=== PATIENT | male | born 1965 | race Caucasian/White ===

== ENCOUNTER 2017-01-25 18:50 | Inpatient (IN) | payer SELFPAY ==
[2017-01-25] MEDS ORDERED: Vancomycin HCl 1.25 GM in Sodium Chloride 0.9% 250 ML 250 ML IVPB SCH (20:00)
[2017-01-25] MEDS ORDERED: Ondansetron HCl/PF 4 MG/2 ML Vial IVP PRN (20:11)
[2017-01-25] MEDS ORDERED: Bisacodyl 5 MG TAB PO PRN (20:11)
[2017-01-25 20:13] LABS: Lactic Acid - Sepsis 2.5 mmol/L (0.5-2.2)
[2017-01-25] MEDS ORDERED: Morphine 2 MG/ML SYRINGE SLOW IVP PRN (20:15)
[2017-01-25 20:17] LABS: ALT (SGPT) 19 U/L (8-55); AST (SGOT) 22 U/L (5-34); Alkaline Phosphatase 85 U/L (40-150); Anion Gap 14 mmol/L (10-20); BUN (Urea Nitrogen) 13 mg/dL (8.4-25.7); Bilirubin, Total 0.4 mg/dL (0.2-1.2); Calc. Creatinine Clearance 0 mL/min (70-130); Calcium 9.2 mg/dL (7.8-10.44); Carbon Dioxide 24 mmol/L (22-29); Chloride 104 mmol/L (98-107); Estimated GFR-MDRD 83; Globulin 3.3 g/dL (2.4-3.5); Protein, Total 7.2 g/dL (6.0-8.3)
[2017-01-25 20:19] LABS: Lactate 1.85 mmol/L (0.50-2.20)
--- NOTE | 2017-01-25 20:19 | RAD ---
THREE VIEWS RIGHT HAND: History: Patient with right thumb swelling. Previous injury. FINDINGS: AP, lateral, and oblique views right thumb obtained. Old healed fracture is seen in the distal aspect of the fourth and fifth metacarpals. The fracture i n the distal phalanx second digit is also healed. There is soft tissue swelling along the soft tissues of the proximal phalanx first digit right hand. No osseous abnormality is seen. IMPRESSION: Soft tissue swelling along the proximal portion of the right thumb with no evidence of acute bony le sions seen. POS: PENNY
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
[2017-01-25 23:05] VITALS: BMI 24.5
[2017-01-25] MEDS: HYDROcodone/Acetaminophen 10/325 mg Tablet PO PRN (23:39)
[2017-01-25] MEDS: Sodium Chloride 0.9% 1,000 ML IV SCH (23:40)
[2017-01-26 08:58] LABS: #Eosinphils 0.3 thou/uL (0.0-0.7); #Lymphocytes 1.8 thou/uL (1.20-3.40); #Monocytes 0.6 thou/uL (0.11-0.59); #Neutrophils 3.9 thou/uL (1.40-6.50); %Basophils 0.5 % (0.0-1.0); %Eosinophils 4.3 % (0.0-10.0); %Lymphocytes 27.8 % (21.0-51.0); %Monocytes 8.8 % (0.0-10.0); Hematocrit 41.4 % (42.0-52.0); Mean Platelet Volume 7.9 fL (7.4-10.4); Red Blood Cell (RBC) Count 4.47 mill/uL (4.70-6.10); White Blood Cell (WBC) Count 6.6 thou/uL (4.8-10.8)
[2017-01-26] MEDS ORDERED: FLU VACC QS2017-18 36 mo. & older 0.5 ML SYRINGE IM ONE (09:00)
[2017-01-26] MEDS ORDERED: Ondansetron HCl/PF 4 MG/2 ML Vial ONE (13:01)
[2017-01-26] MEDS ORDERED: CEFAZOLIN 1 GM VIAL ONE (13:01)
[2017-01-26] MEDS ORDERED: Propofol 200 MG/20 ML VIAL ONE (13:01)
[2017-01-26] MEDS ORDERED: Lidocaine 1% PF 5 ML VIAL ONE (13:01)
[2017-01-26] MEDS ORDERED: Neomycin-Polymyxin 1 ML AMP ONE (14:44)
[2017-01-26] MEDS ORDERED: Fentanyl 100 MCG/2 ML VIAL ONE (14:49)
[2017-01-26] MEDS: Sodium Chloride 0.9% 1,000 ML IV SCH (17:08)
[2017-01-26] MEDS: HYDROcodone/Acetaminophen 10/325 mg Tablet PO PRN ×2 (17:27→20:55)
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
[2017-01-27] MEDS: Vancomycin HCl 1 GM in Premix Bag 1 BAG IVPB SCH ×2 (05:52→16:46)
[2017-01-27 06:40] LABS: #Eosinphils 0.4 thou/uL (0.0-0.7); #Lymphocytes 1.9 thou/uL (1.20-3.40); #Monocytes 0.5 thou/uL (0.11-0.59); #Neutrophils 4.8 thou/uL (1.40-6.50); %Basophils 0.5 % (0.0-1.0); %Eosinophils 4.8 % (0.0-10.0); %Lymphocytes 24.7 % (21.0-51.0); %Monocytes 6.3 % (0.0-10.0); Hematocrit 42.1 % (42.0-52.0); Mean Platelet Volume 8.8 fL (7.4-10.4); Red Blood Cell (RBC) Count 4.53 mill/uL (4.70-6.10); White Blood Cell (WBC) Count 7.6 thou/uL (4.8-10.8)
[2017-01-27] MEDS: HYDROcodone/Acetaminophen 10/325 mg Tablet PO PRN ×2 (10:30→21:07)
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
[2017-01-27] MEDS: Sodium Chloride 0.9% 1,000 ML IV SCH ×2 (16:46→21:12)
[2017-01-28] MEDS: Vancomycin HCl 1 GM in Premix Bag 1 BAG IVPB SCH ×2 (03:11→17:05)
[2017-01-28] MEDS: Sodium Chloride 0.9% 1,000 ML IV SCH ×2 (03:30→17:05)
[2017-01-28] MEDS: HYDROcodone/Acetaminophen 10/325 mg Tablet PO PRN ×2 (07:12→13:16)
[2017-01-28 08:18] LABS: #Basophils 0.1 thou/uL (0.0-0.2); #Eosinphils 0.4 thou/uL (0.0-0.7); #Lymphocytes 1.7 thou/uL (1.20-3.40); #Monocytes 0.5 thou/uL (0.11-0.59); #Neutrophils 4.3 thou/uL (1.40-6.50); %Basophils 0.7 % (0.0-1.0); %Eosinophils 6.3 % (0.0-10.0); %Lymphocytes 23.9 % (21.0-51.0); %Monocytes 7.2 % (0.0-10.0); Hematocrit 44.5 % (42.0-52.0); Mean Platelet Volume 7.9 fL (7.4-10.4); Red Blood Cell (RBC) Count 4.94 mill/uL (4.70-6.10)
[2017-01-28 17:11] VITALS: BP 157/97; TEMP 98.1
[2017-01-29 14:20] LABS: Hep C PCR-Quant HCV Not Detected IU/mL (.)
== END 2017-01-28 17:25 | disposition home or self-care (01) | DRG 580 ==
LOC: ERS 18:50 → SURG B 21:39
PROVIDERS: ADMIT Orthopaedic Surgery; ATTEND Orthopaedic Surgery
PROC: 0J9J0ZZ Drainage of Right Hand Subcutaneous Tissue and Fascia, Open Approach (ICD-10-PCS; principal; 2017-01-26)
DX: L02.511 Cutaneous abscess of right hand (principal); I96 Gangrene, not elsewhere classified; B95.1 Streptococcus, group B, as the cause of diseases classified elsewhere; W26.8XXA Contact with other sharp object(s), not elsewhere classified, initial encounter; F17.210 Nicotine dependence, cigarettes, uncomplicated; Z87.81 Personal history of (healed) traumatic fracture
CPT/HCPCS: 36415; 80053; 83605; 85025; 85652; 86140; 86780; 86803; 87040; 87070; 87077; 87086; 87102; 87186; 87205; 87206; 87389; 87522; 96360; J0690; J2001; J2405; J2704; J3010; J3370; J7050

== ENCOUNTER 2017-03-31 19:44 | Emergency (ER) | payer SELFPAY ==
--- NOTE | 2017-03-31 20:24 | RAD ---
LEFT SHOULDER THREE VIEWS: 03/31/17 HISTORY: Shoulder pain. There is no signs of fracture or dislocation. IMPRESSION: Negative left shoulder. POS: HITESH
== END 2017-03-31 22:27 | disposition home or self-care (01) ==
LOC: ERS 19:44
DX: S46.912A Strain of unspecified muscle, fascia and tendon at shoulder and upper arm level, left arm, initial encounter (principal); F17.210 Nicotine dependence, cigarettes, uncomplicated; Z71.6 Tobacco abuse counseling; X58.XXXA Exposure to other specified factors, initial encounter
CPT/HCPCS: 99406

== ENCOUNTER 2018-08-12 10:07 | Emergency (ER) | payer SELFPAY ==
[2018-08-12 10:56] LABS: Bilirubin Negative (Negative); Blood, Urine Moderate (Negative); Clarity CLOUDY (Clear); Glucose, Urine (Dipstick) Negative (Negative); Leukocyte Moderate (Negative); Nitrite Positive (Negative); Protein, Urine (Dipstick) 30 mg/dL (Neg-Trace); Urobilinogen 0.2 mg/dL (0.2-1.0)
[2018-08-12 10:59] LABS: Bacteria/HPF 4+ HPF (None Seen); Hyaline Casts/LPF 4-6 HYALINE CAST LPF (0-3 Hyaline); Pathc Cast-AUWi Flag 1.08 (0-2.49); RBC/HPF GREATER THAN 50-TNTC HPF (0-3); Squamous Epithelial 0-3 HPF (0-3)
[2018-08-12 11:10] LABS: Crystals/HPF None Seen HPF (Negative)
== END 2018-08-12 11:44 | disposition home or self-care (01) ==
LOC: ERS 10:07
DX: N30.90 Cystitis, unspecified without hematuria (principal); F17.210 Nicotine dependence, cigarettes, uncomplicated
CPT/HCPCS: 81003; 81015; 87077; 87086; 87186; 99283

== ENCOUNTER 2019-10-25 01:24 | Emergency (ER) | payer SELFPAY ==
[2019-10-25] MEDS ORDERED: Aspirin Chewable 81 MG TAB ONE (01:39)
[2019-10-25 02:16] LABS: #Basophils 0.1 thou/uL (0.0-0.2); #Eosinphils 0.4 thou/uL (0.0-0.7); #Lymphocytes 2.1 thou/uL (1.20-3.40); #Monocytes 0.6 thou/uL (0.11-0.59); #Neutrophils 5.5 thou/uL (1.40-6.50); %Basophils 0.7 % (0.0-1.0); %Eosinophils 4.1 % (0.0-10.0); %Monocytes 7.1 % (0.0-10.0); Hemoglobin 14.5 g/dL (14.0-18.0); Mean Corpuscular HGB CONC 32.6 g/dL (32.0-36.0); Mean Platelet Volume 8.3 fL (7.4-10.4); Platelet Count 233 thou/uL (130-400); RBC Distribution Width 12.6 % (11.5-14.5); Red Blood Cell (RBC) Count 4.86 mill/uL (4.70-6.10); White Blood Cell (WBC) Count 8.6 thou/uL (4.8-10.8)
[2019-10-25 02:38] LABS: ALT (SGPT) 20 U/L (8-55); AST (SGOT) 22 U/L (5-34); Alkaline Phosphatase 69 U/L (40-110); Anion Gap 11 mmol/L (10-20); BUN (Urea Nitrogen) 16 mg/dL (8.4-25.7); Bilirubin, Total Less than 0.2 mg/dL (0.2-1.2); Calc. Creatinine Clearance 0 mL/min (70-130); Calcium 9.2 mg/dL (7.8-10.44); Carbon Dioxide 28 mmol/L (22-29); Chloride 105 mmol/L (98-107); Estimated GFR-MDRD 82; Globulin 2.8 g/dL (2.4-3.5); Glucose 88 mg/dL (70-105); Potassium 4.2 mmol/L (3.5-5.1); Protein, Total 6.8 g/dL (6.0-8.3); Sodium 140 mmol/L (136-145)
--- NOTE | 2019-10-25 07:51 | RAD ---
EXAM: Single view of the chest HISTORY: Chest tightness COMPARISON: 01/12/2016 FINDINGS: Single view of the chest shows a normal sized cardiomediastinal silhouette. There is no mariia dence of consolidation, mass, or pleural effusion. The bones are unremarkable IMPRESSION: No evidence of acute cardiopulmonary disease
[2019-10-25 14:31] LABS: SARS-CoV-2 MS2 Positive; SARS-CoV-2 N Gene Negative; SARS-CoV-2 S Gene Negative; SARS-CoV-2 by NAA Not Detected (NotDetected); SARS-CoV-2 orf1ab Negative
== END 2019-10-25 03:03 | disposition home or self-care (01) ==
LOC: ERS 01:24
DX: R06.00 Dyspnea, unspecified (principal); R07.9 Chest pain, unspecified; F17.210 Nicotine dependence, cigarettes, uncomplicated; Z20.828 Contact with and (suspected) exposure to other viral communicable diseases; Z86.73 Personal history of transient ischemic attack (TIA), and cerebral infarction without residual deficits
CPT/HCPCS: 36415; 71045; 80053; 84484; 85025; 87635; 93005; U0003

== ENCOUNTER 2019-12-09 14:57 | Emergency (ER) | payer SELFPAY ==
--- NOTE | 2019-12-09 15:38 | CT ---
CT BRAIN WITHOUT CONTRAST: HISTORY: Level 2 stroke alert. Right sided arm and facial numbness and right hand weakness patient pereyra s a history of methamphetamine abuse every day for the past 10 years FINDINGS: No evidence of acute infarct, hemorrhage, midline shift or abnormal extra-axial fluid collections is seen. The ventricular size is appropriate and the basilar cisterns are patent. The bony calvarium is intact. The visualized paranasal sinuses and mastoid air cells are well aerated. IMPRESSION: No CT evidence of acute intracranial process. Discussed over the telephone with ER physician Dr. Haroon Calderon at 3:34 PM
[2019-12-09 15:46] LABS: #Basophils 0.1 thou/uL (0.0-0.2); #Eosinphils 0.3 thou/uL (0.0-0.7); #Lymphocytes 1.5 thou/uL (1.20-3.40); #Monocytes 0.5 thou/uL (0.11-0.59); #Neutrophils 5.6 thou/uL (1.40-6.50); %Basophils 0.8 % (0.0-1.0); %Eosinophils 3.9 % (0.0-10.0); %Lymphocytes 18.6 % (21.0-51.0); %Monocytes 6.6 % (0.0-10.0); %Neutrophils 70.2 % (42.0-75.0); Hemoglobin 15.7 g/dL (14.0-18.0); Mean Corpuscular HGB CONC 33.4 g/dL (32.0-36.0); Mean Corpuscular Hemoglobin 30.3 pg (27.0-31.0); Mean Corpuscular Volume 90.9 fL (78.0-98.0); Platelet Count 226 thou/uL (130-400); RBC Distribution Width 12.7 % (11.5-14.5); Red Blood Cell (RBC) Count 5.17 mill/uL (4.70-6.10)
[2019-12-09 16:07] LABS: ALT (SGPT) 21 U/L (8-55); AST (SGOT) 22 U/L (5-34); Albumin 4.3 g/dL (3.5-5.0); Alkaline Phosphatase 82 U/L (40-110); Anion Gap 13 mmol/L (10-20); BUN (Urea Nitrogen) 19 mg/dL (8.4-25.7); Bilirubin, Total 0.3 mg/dL (0.2-1.2); Calc. Creatinine Clearance 0 mL/min (70-130); Calcium 8.9 mg/dL (7.8-10.44); Carbon Dioxide 26 mmol/L (22-29); Chloride 103 mmol/L (98-107); Estimated GFR-MDRD 81; Globulin 2.9 g/dL (2.4-3.5); Glucose 105 mg/dL (70-105); Potassium 3.9 mmol/L (3.5-5.1); Protein, Total 7.2 g/dL (6.0-8.3); Sodium 138 mmol/L (136-145)
[2019-12-09 16:14] LABS: INR-International Normal Ratio 0.9; PTT 30.8 sec (22.9-36.1); Prothrombin Time 11.9 sec (12.0-14.7)
[2019-12-09 17:00] LABS: Bilirubin Negative (Negative); Blood, Urine Negative (Negative); Clarity Clear (Clear); Glucose, Urine (Dipstick) Normal (Negative); Ketone, Urine Negative (Negative); Leukocyte 25 Leu/uL (Negative); Nitrite Negative (Negative); Protein, Urine (Dipstick) Negative (Neg-Trace); RBC/HPF 0-3 HPF (0-3); Specific Gravity, Urine 1.019 (1.002-1.036); Squamous Epithelial None Seen HPF (0-3); Urobilinogen Normal mg/dL (Less than 2)
[2019-12-09 17:06] LABS: Medtox Reader # READER 4
[2019-12-09 17:07] LABS: Amphetamine Detected (NotDetected); Barbiturates Screen Not Detected (NotDetected); Benzodiazepine Screen Not Detected (NotDetected); Cocaine Metabolite Screen Not Detected (NotDetected); Medtox Control Line Valid? VALID (VALID); Methadone Not Detected (NotDetected); Methamphetamine Not Detected (NotDetected); Opiate Screen Not Detected (NotDetected); Oxycodone Screen Not Detected (NotDetected); Phencyclidine (PCP) Not Detected (NotDetected); THC/Cannabinoid Screen Not Detected (NotDetected); Tricyclic Screen Not Detected (NotDetected)
[2019-12-09 17:09] LABS: Bacteria/HPF 4+ HPF (None Seen)
== END 2019-12-09 19:49 | disposition home or self-care (01) ==
LOC: ERS 14:57
DX: I10 Essential (primary) hypertension (principal); F15.10 Other stimulant abuse, uncomplicated; F17.200 Nicotine dependence, unspecified, uncomplicated
CPT/HCPCS: 36416; 70450; 80053; 80306; 81003; 81015; 84484; 85025; 85610; 85730; 93005; 94760